=== PATIENT | male | born 1975 | race African-American/Black ===

== ENCOUNTER 2022-05-05 12:51 | Emergency (ER) | payer MEDICAID ==
[~2022-05-05] VITALS: Ht 190.5 cm; Wt 104.3 kg
[2022-05-05 13:08] VITALS: BP_SYST 158
--- NOTE | 2022-05-05 14:00 | NUR ---
ER at triage examining patient.
[2022-05-05 14:07] VITALS: BP_SYST 136
--- NOTE | 2022-05-05 14:07 | NUR ---
Patient given written and verbal discharge instructions and verbalizes understanding. ER MD discussed with patient the results and treatment provided. Patient in stable condition. ID arm band removed. Patient educated on pain management and to follow up with PMD. Pain Scale 0. Opportunity for questions provided and answered. Medication side effect fact sheet provided.
--- NOTE | 2022-05-05 14:11 | NUR ---
Pt C/O right knee pain Swelling noted Dr Rodarte evaluated patient Patient given written and verbal discharge instructions and verbalizes understanding. ER MD discussed with patient the results and treatment provided. Patient in stable condition. ID arm band removed. Patient educated on pain management and to follow up with PMD. Pain Scale 0. Opportunity for questions provided and answered. Medication side effect fact sheet provided. Left w/o DC paperwork
== END 2022-05-05 14:07 | disposition home or self-care (01) ==
LOC: SED 12:51
DX: S83.8X1A Sprain of other specified parts of right knee, initial encounter (principal); Z79.899 Other long term (current) drug therapy; W18.49XA Other slipping, tripping and stumbling without falling, initial encounter; Y93.02 Activity, running; Y92.89 Other specified places as the place of occurrence of the external cause; Y99.8 Other external cause status
CPT/HCPCS: 99283